=== PATIENT | female | born 1990 | race American Indian/Alaskan Native ===

== ENCOUNTER 2016-12-31 23:38 | Emergency (ER) | payer MEDICAID ==
--- NOTE | 2017-01-01 00:25 | XRay Report ---
FINAL REPORT PROCEDURE: XR FOOT 3 LT TECHNIQUE: LEFT foot radiographs, AP, lateral, and oblique views. CPT 14820 HISTORY: fall, pain, Left Foot 1st toe, send for report COMPARISON: No prior studies are available for comparison. FINDINGS: Fracture (s) and/or Dislocation(s): There is a slightly displaced fracture across the base the distal phalanx of the 1st digit. The remaining osseous structures are intact. Alignment: Normal . Joint space(s): Normal . Soft tissues: Normal . Bone mineralization: Normal . Foreign bodies: None . Calcaneal spurring: None . IMPRESSION: Slightly displaced fracture across the base distal phalanx of the 1st digit..
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
[2017-01-01 06:26] VITALS: BP 100/65
== END 2017-01-01 05:15 | disposition home or self-care (01) ==
LOC: ED 23:38
DX: S92.424A Nondisplaced fracture of distal phalanx of right great toe, initial encounter for closed fracture (principal); W01.0XXA Fall on same level from slipping, tripping and stumbling without subsequent striking against object, initial encounter; Y93.9 Activity, unspecified; Y92.89 Other specified places as the place of occurrence of the external cause; Y99.9 Unspecified external cause status
CPT/HCPCS: 99283

== ENCOUNTER 2017-01-22 02:39 | Emergency (ER) | payer MEDICAID ==
[2017-01-22 03:40] VITALS: BP 118/77
[2017-01-22] MEDS ORDERED: BENADRYL PO ONE (04:12)
[2017-01-22] MEDS ORDERED: DELTASONE PO ONE (04:12)
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
== END 2017-01-22 04:40 | disposition home or self-care (01) ==
LOC: ED 02:39
DX: S40.862A Insect bite (nonvenomous) of left upper arm, initial encounter (principal); L42 Pityriasis rosea; S40.861A Insect bite (nonvenomous) of right upper arm, initial encounter; W59.01XA Bitten by nonvenomous lizards, initial encounter; Y93.89 Activity, other specified; Y99.8 Other external cause status; Y92.89 Other specified places as the place of occurrence of the external cause; R56.9 Unspecified convulsions
CPT/HCPCS: 99282; J7512

== ENCOUNTER 2017-07-21 20:01 | Emergency (ER) | payer MEDICAID ==
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
[2017-07-21] MEDS ORDERED: NORCO 5/325 PO ONE (23:50)
[2017-07-22 00:10] VITALS: BP 118/69
== END 2017-07-22 00:10 | disposition home or self-care (01) ==
LOC: ED 20:01
DX: B02.9 Zoster without complications (principal)
CPT/HCPCS: 99282

== ENCOUNTER 2017-08-31 20:02 | Emergency (ER) | payer MEDICAID ==
[2017-08-31 21:21] VITALS: BP 112/74
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
== END 2017-09-01 04:18 | disposition left against medical advice (07) ==
LOC: ED 20:02
DX: R51 Headache (principal); Z53.21 Procedure and treatment not carried out due to patient leaving prior to being seen by health care provider
CPT/HCPCS: 70450

== ENCOUNTER 2017-11-11 18:29 | Emergency (ER) | payer MEDICAID ==
[2017-11-11 19:59] VITALS: BP 121/80
[2017-11-11 20:56] LABS: Bilirubin,Urine NEG (Negative); Blood,Urine NEG (Negative); Color,Urine Yellow (Yellow); Mucus,Urine FEW /HPF; Protein,Urine <15 mg/dL mg/dL (Negative); Urobilinogen,Urine < 2.0 mg/dL (<2.0)
[2017-11-11 20:56] LABS: Alanine Aminotransferase 9 units/L (7-56); Albumin 3.9 g/dL (3.9-5); BUN/Creatinine Ratio 20; Blood Urea Nitrogen 10 mg/dL (7-17); Calcium 9.4 mg/dL (8.4-10.2); Hemolysis Index 30
[2017-11-11 21:25] LABS: Basophils % (Auto) 0.3 % (0.0-1.8); Eosinophils # (Auto) 0.1 K/mm3 (0.0-0.4); Eosinophils % (Auto) 1.3 % (0.0-4.3); Hematocrit 39.6 % (30.3-42.9); Hemoglobin 13.2 gm/dl (10.1-14.3); Lymphocytes # (Auto) 2.3 K/mm3 (1.2-5.4); Lymphocytes % (Auto) 33.8 % (13.4-35.0); Mean Corpuscular HGB Conc 33 % (30-34); Mean Corpuscular Hemoglobin 31 pg (28-32); Mean Corpuscular Volume 92 fl (79-97); Monocytes # (Auto) 0.8 K/mm3 (0.0-0.8); Monocytes % (Auto) 11.3 % (0.0-7.3); Platelet Count 257 K/mm3 (140-440); Red Blood Count 4.29 M/mm3 (3.65-5.03); Red Cell Distribution Width 12.9 % (13.2-15.2)
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
--- NOTE | 2017-11-12 02:45 | Ultrasound Report ---
FINAL REPORT PROCEDURE: US OB < = 14 WEEKS FETUS TECHNIQUE: Real-time transabdominal sonography of the uterus, placenta, amniotic fluid, adnexa, and fetus was performed with image documentation. Measurements were obtained to determine age/size. M-mode Doppler was used to document heartbeat. CPT 08989 HISTORY: +hcg COMPARISON: No prior studies are available for comparison. FINDINGS: CRL: 22.6 mm, which corresponds to a gestational age of: 8 weeks, 6 days. Yolk Sac: Normal. Embryonic Cardiac Activity: 177 beats per minute Gestational Sac: Normal. Amniotic fluid: Normal. Cervix: Normal. Right Ovary: Normal. Left Ovary: Normal. Estimated delivery date: 06/18/2018 Uterus and adnexa: Normal. IMPRESSION: Single live intrauterine gestation at approximately 8 weeks and 6 days. EDC by US 06/18/2018.
--- NOTE | 2017-11-12 02:46 | Ultrasound Report ---
FINAL REPORT PROCEDURE: US OB TRANSVAGINAL TECHNIQUE: Real-time transvaginal sonography of the uterus, placenta, amniotic fluid, adnexa, and fetus was performed with image documentation. Measurements were obtained to determine age/size. M-mode Doppler was used to document heartbeat. HISTORY: +hcg COMPARISON: No prior studies are available for comparison. FINDINGS: CRL: 22.6 mm, which corresponds to a gestational age of: 8 weeks, 6 days. Yolk Sac: Normal. Embryonic Cardiac Activity: 177 beats per minute Gestational Sac: Normal. Amniotic fluid: Normal. Cervix: Normal. Right Ovary: Normal. Left Ovary: Normal. Estimated delivery date: 06/18/2018 Uterus and adnexa: Normal. IMPRESSION: Single live intrauterine gestation at approximately 8 weeks and 6 days. EDC by US 06/18/2018.
== END 2017-11-12 02:40 | disposition home or self-care (01) ==
LOC: ED 18:29
DX: O23.41 Unspecified infection of urinary tract in pregnancy, first trimester (principal); Z3A.09 9 weeks gestation of pregnancy
CPT/HCPCS: 36415; 76801; 76817; 80053; 81001; 84702; 84703; 85025; 99284

== ENCOUNTER 2019-03-10 21:06 | Emergency (ER) | payer MEDICAID ==
[2019-03-10 22:04] LABS: Basophils # (Auto) 0.1 K/mm3 (0.0-0.1); Basophils % (Auto) 0.9 % (0.0-1.8); Eosinophils # (Auto) 0.1 K/mm3 (0.0-0.4); Eosinophils % (Auto) 1.3 % (0.0-4.3); Hematocrit 35.8 % (30.3-42.9); Hemoglobin 12.1 gm/dl (10.1-14.3); Lymphocytes # (Auto) 1.6 K/mm3 (1.2-5.4); Lymphocytes % (Auto) 23.1 % (13.4-35.0); Mean Corpuscular HGB Conc 34 % (30-34); Mean Corpuscular Hemoglobin 32 pg (28-32); Mean Corpuscular Volume 94 fl (79-97); Monocytes # (Auto) 0.7 K/mm3 (0.0-0.8); Monocytes % (Auto) 9.8 % (0.0-7.3); Platelet Count 244 K/mm3 (140-440); Red Blood Count 3.82 M/mm3 (3.65-5.03); Red Cell Distribution Width 13.5 % (13.2-15.2)
[2019-03-10 22:18] LABS: Alanine Aminotransferase 11 units/L (7-56); Albumin 3.8 g/dL (3.9-5); BUN/Creatinine Ratio 21; Blood Urea Nitrogen 15 mg/dL (7-17); Calcium 9.1 mg/dL (8.4-10.2); Hemolysis Index 10
[2019-03-10 22:25] LABS: Bilirubin,Urine NEG (Negative); Blood,Urine NEG (Negative); Color,Urine Yellow (Yellow); Mucus,Urine 2+ /HPF; Protein,Urine <15 mg/dL mg/dL (Negative)
[2019-03-11] MEDS ORDERED: BENTYL PO ONE (00:49)
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
--- NOTE | 2019-03-11 01:48 | XRay Report ---
ABDOMEN 2 VIEWS INDICATION / CLINICAL INFORMATION: Abdominal pain/discomfort for 2 days with constipation. COMPARISON: None available. FINDINGS: TUBES / LINES: None. BOWEL GAS PATTERN: The colon contains a large amount of stool with scattered gas. No dilated bowel lo ops. FREE AIR / EXTRALUMINAL GAS: None seen. ADDITIONAL FINDINGS: No significant additional findings. IMPRESSION: Findings consistent with constipation. Signer Name: Bakari Koo MD Signed: 03/11/2019 1:44 AM Workstation Name: [email or web address]
[2019-03-11 02:19] VITALS: BP 137/71
== END 2019-03-11 02:18 | disposition home or self-care (01) ==
LOC: ED 21:06
DX: K59.00 Constipation, unspecified (principal); Z79.899 Other long term (current) drug therapy
CPT/HCPCS: 36415; 74019; 80053; 81001; 84703; 85025; 99284